=== PATIENT | male | born 1955 | race Caucasian/White ===

== ENCOUNTER → 2022-05-09 09:01 | Outpatient (BNVA) | payer SELFPAY | PROVIDERS: Visit Provider Physician Assistant | DX: Z02.79 Encounter for issue of other medical certificate (principal) ==

== ENCOUNTER 2023-11-30 13:26 | Emergency (ER) | payer MEDICARE, SELFPAY ==
--- NOTE | ~2023-11-30 | CT_ITS ---
EXAMINATION: CT HEAD WITHOUT CONTRAST CLINICAL INFORMATION: Injury, forehead laceration COMPARISON: None available. TECHNIQUE: Contiguous axial imaging was performed from the skull base to vertex without intravenous administration of contrast. This CT examination was performed using dose optimization techniques as appropriate, variously including the following: *Automated exposure control *Adjustment of mA and/or kV according to patient size (this includes techniques or standardized protocols for targeted exams where dose is matched to indication/reason for exam; i.e. extremities or head) *Use of iterative reconstruction technique DLP: 808 mGy-cm FINDINGS: There is no evidence of acute intracranial hemorrhage or edematous territorial infarction. No abnormal mass effect or midline shift is seen. Archuleta to white matter differentiation is well preserved. No abnormal extra-axial fluid collections are identified. The ventricles are normal in size. No abnormal attenuation in the brain parenchyma. No acute calvarial fracture.. Paranasal sinuses and mastoid air cells are well-aerated. CT/CT head/brain wo IV con IMPRESSION: No CT evidence of acute intracranial hemorrhage or edematous territorial infarction. Electronically signed by: Cristi Youssef MD 11/30/2023 03:30 PM EDT
[2023-11-30 14:31] VITALS: BP 127/71; PULSE 59; RESP 14; TEMP 36.6; O2SAT 98; BMI 28.7
--- OUTSIDE RECORDS SUMMARY | 2023-11-30 16:12 | XMS_ITS | Continuity of Care Document ---
Author Organization [facility] Address [address] [place] [address] [address], [address] [place] [address]- Care Team Providers Care Production Trainer Name Role Phone Camilo DAVID, Chuyita A Primary Care Physician Encounter [facility] Date(s): 12/10/21 - 01/09/[address], [address] [place] [address]- Allergies, Adverse Reactions, Alerts No Known Allergies Medications acetaminophen 325 mg oral tablet 650 mg, 2, tablet, By Mouth, Every 4 hours, Refills 0, Maintenance, 12/10/21 15:48:00 EDT, Partial fill upon patient request if the prescription is for a schedule II opioid drug. Start Date: 12/10/21 Status: Ordered lisinopril 5 mg oral tablet 5 mg, 1, tablet, By Mouth, Daily, Refills 0, Maintenance, 11/01/21 13:15:00 EDT, Partial fill upon patient request if the prescription is for a schedule II opioid drug. Start Date: 11/01/21 Status: Ordered oxyCODONE 5 mg oral tablet See Instructions, PRN, 1 tablet By Mouth Every 4-6 hours, # 42 tablet, Refills 0, Tot. Refills 0, Maintenance, as needed for pain, 12/12/21 18:46:00 EDT, Instructions Replace Required Details, Route to Pharmacy Electronically, [facility]... Start Date: 12/12/21 Status: Ordered tiZANidine 4 mg oral tablet 4 mg, 1, tablet, By Mouth, 3 times a day, # 90 tablet, Refills 0, Tot. Refills 0, Maintenance, 12/12/21 18:46:00 EDT, Route to Pharmacy Electronically, [facility], Partial fill upon patient request if the prescription is for a schedule I... Start Date: 12/12/21 Status: Ordered Patient Care team information Personnel Name: Chuyita Page MD Address: Address: [address] [place] [id number]
--- OUTSIDE RECORDS SUMMARY | 2023-11-30 16:12 | XMS_ITS | Continuity of Care Document ---
Author Organization [facility] Address [address] [place] [address], [address] [place] [address]- Care Team Providers Care Confidential Secretary Name Role Phone Chuyita Page MD A Primary Care Physician Encounter [facility] Date(s): 11/01/21 - 11/08/21 [facility] [address] [place] [address] Drive, [address] [place], [place] [address] Attending Physician: Jai Cabrera MD Referring Physician: Chuyita Page MD Allergies, Adverse Reactions, Alerts No Known Allergies Medications lisinopril 5 mg oral tablet 5 mg, 1, tablet, By Mouth, Daily, Refills 0, Maintenance, 11/01/21 13:15:00 EDT, Partial fill upon patient request if the prescription is for a schedule II opioid drug. Start Date: 11/01/21 Status: Ordered Vital Signs Most recent to oldest [Reference Range]: 1 Height 175.26 cm (11/01/21 1:11 PM) Weight 91.0 kg (11/01/21 1:11 PM) Body Mass Index [18.5-24.99] 29.63 *H* (11/01/21 1:11 PM)
--- OUTSIDE RECORDS SUMMARY | 2023-11-30 16:12 | XMS_ITS | Continuity of Care Document ---
Author Organization [facility] Address [address] [place] [address], [address] [place] [address]- Care Team Providers Care Track Grinder Name Role Phone Camilo DAVID, Chuyita A Primary Care Physician Encounter [facility] Date(s): 09/26/21 - 10/27/21 [facility] [address] [place] [address], [address] [place], [place] [address] Attending Physician: Jai Cabrera MD Referring Physician: Chuyita Page MD Allergies, Adverse Reactions, Alerts No Known Allergies
--- OUTSIDE RECORDS SUMMARY | 2023-11-30 16:12 | XMS_ITS | Continuity of Care Document ---
Author Organization [facility] Address [address] [place] [address] [address], [address] [place] [address]- Care Team Providers Care Ice Scraper Name Role Phone Chuyita Page MD A Primary Care Physician Encounter [facility] Date(s): 09/26/21 - 10/26/21 [facility] [address] [place] [address], [address] [place], [place] [address] Allergies, Adverse Reactions, Alerts No Known Allergies
--- OUTSIDE RECORDS SUMMARY | 2023-11-30 16:12 | XMS_ITS | Continuity of Care Document ---
Author Organization [facility] Address [address] [place] [address] [address], [address] [place] [address]- Care Team Providers Care Community Specialist Name Role Phone Chuyita Page MD A Primary Care Physician Encounter [facility] Date(s): 01/10/22 - 02/09/[address], [address] [place] [address]- Attending Physician: Susan Iraheta Admitting Physician: AdmtrSusan Referring Physician: Admtr ArBetzaida Allergies, Adverse Reactions, Alerts No Known Allergies [...] Replace Required Details, Route to Pharmacy Electronically, [facility]... Start Date: 12/12/21 Status: Ordered tiZANidine 4 mg oral tablet 4 mg, 1, tablet, By Mouth, 3 times a day, # 90 tablet, Refills 0, Tot. Refills 0, Maintenance, 12/12/21 18:46:00 EDT, Route to Pharmacy Electronically, [facility], Partial fill upon patient request if the prescription is for a schedule I... Start Date: 12/12/21 Status: Ordered Patient Care team information Care Team Personnel Name: Camilo DAVID , Chuyita Bermudez Position: Reference Physician Member Role: PCP Address: Address: [address] [place] [address]- Care Team Related Persons Name: DILIP MAHARAJ Address: [address] [place] [address]
--- OUTSIDE RECORDS SUMMARY | 2023-11-30 16:12 | XMS_ITS | Continuity of Care Document ---
Author Organization [facility] Address [address] [place] [address] [address], [address] [place] [address]- Care Team Providers Care Tipple Greaser Name Role Phone Camilo DAVID, Chuyita A Primary Care Physician En[place] [facility] Date(s): 12/04/21 - 01/03/[address], [address] [place] [address]- Allergies, Adverse Reactions, Alerts No Known Allergies [...] Replace Required Details, Route to Pharmacy Electronically, [facility]... Start Date: 12/12/21 Status: Ordered tiZANidine 4 mg oral tablet 4 mg, 1, tablet, By Mouth, 3 times a day, # 90 tablet, Refills 0, Tot. Refills 0, Maintenance, 12/12/21 18:46:00 EDT, Route to Pharmacy Electronically, [facility], Partial fill upon patient request if the prescription is for a schedule I... Start Date: 12/12/21 Status: Ordered Patient Care team information Personnel Name: Chuyita Page MD Address: Address: [address] [place] [address]
--- OUTSIDE RECORDS SUMMARY | 2023-11-30 16:12 | XMS_ITS | Continuity of Care Document ---
Author Organization [facility] ter Address [address] [place] [address]- Care Team Providers Care Physical Fitness Teacher Name Role Phone Chuyita Page MD A Primary Care Physician [place] [facility] Date(s): 12/12/21 - 12/12/[address] [address] Discharge Disposition: A-D/C Home Attending Physician: Jai Cabrera MD Admitting Physician: Jai Cabrera MD Referring Physician: Jai Cabrera MD Allergies, Adverse Reactions, Alerts No Known [...] Replace Required Details, Route to Pharmacy Electronically, [facility]... Start Date: 12/12/21 Status: Ordered OxyCODONE IR Tablet 5 mg, Tablet, By Mouth, Every 4 hours, in PACU ONLY, if patient can tolerate PO, PRN for Pain , Mild, Routine, 12/12/21 15:57:00 EDT Start Date: 12/12/21 Stop Date: 12/19/21 Status: Ordered tiZANidine 4 mg oral tablet 4 mg, 1, tablet, By Mouth, 3 times a day, # 90 tablet, Refills 0, Tot. Refills 0, Maintenance, 12/12/21 18:46:00 EDT, Route to Pharmacy Electronically, [facility], Partial fill upon patient request if the prescription is for a schedule I... Start Date: 12/12/21 Status: Ordered Results Radiology Reports * Exam Date Time Procedure Performing Provider Status 12/12/21 4:20 PM Spine Single View Faraz Downey; Auth ( Verified) Notes: (Spine Single View) Reason For Exam: acdf RESULT: Spine Single View Findings/ Impression: 5 intraoperative fluoroscopic spot images submitted during C3-C4 and C5-C6 fusion WSN: [id number] Ordering Physician: Jai Cabrera Dictated By: Jatin Mendez MD Dictated Date/Time: 12/12/21 4:53 pm Reviewed By: Jatin Mendez MD Signed By: Jatin Mendez MD Signed Date/Time: 12/12/21 4:53 pm Transcribed By: CSB Transcribed Date/Time: 12/12/21 4:52 pm * Exam Date Time Procedure Performing Provider Status 12/12/21 4:20 PM C-Arm > 1 Hour Faraz Downey; Auth (Jacques ified) Notes: (C-Arm > 1 Hour) Reason For Exam: acdf RESULT: C-Arm > 1 Hour C-Arm > 1 Hour INDICATION: Reason: acdf COMPARISONS: None TECHNIQUE: Fluoroscopy support was provided. There was no radiologist in attendance. FLUOROSCOPY TIME: 13.7 seconds TECHNOLOGIST TIME: 1 hour, 10 minutes FINDINGS: Fluoroscopy support was provided. There was no radiologist in attendance. IMPRESSION: See above. WSN: [id number] Ordering Physician: Jai Cabrera Dictated By: Lane Paez MD Dictated Date/Time: 12/12/21 4:41 pm Reviewed By: Lane Paez MD Signed By: Lane Paez MD Signed Date/Time: 12/12/21 4:41 pm Transcribed By: CSB Transcribed Date/Time: 12/12/21 4:40 pm Vital Signs Most recent to oldest [Reference Range]: 1 2 3 Height 175 cm (12/12/21 2:10 PM) 175 cm (12/10/21 3:53 PM) Weight 85.5 kg (12/12/21 2:10 PM) 91 kg (12/10/21 3:53 PM) Oxygen Saturation [94-100 %] 94 % (12/12/21 6:00 PM) 96 % (12/12/21 5:45 PM) 98 % (12/12/21 5:30 PM) Pulse Rate [55-90 bpm] 67 bpm (12/12/21 2:10 PM) Body Mass Index [18.5-24.99] 27.92 *H* (12/12/21 2:10 PM) 29.71 *H* (12/10/21 3:53 PM) Blood Pressure [90-138/55-84 mm Hg] 162/86mm Hg *H* (12/12/21 6:00 PM) 165/87mm Hg *H* (12/12/21 5:45 PM) 135/62mm Hg (12/12/21 5:30 PM) Respiratory Rate [16-30 br/min] 20 br/min (12/12/21 6:34 PM) 14 br/min *L* (12/12/21 6:00 PM) 22 br/min (12/12/21 5:45 PM) Temperature [96.8-100.4 DegF] 97.5 DegF (12/12/21 5:45 PM) 97.4 DegF (12/12/21 4:45 PM) 97.8 DegF (12/12/21 2:10 PM) Liters per Minute 2 L/min (12/12/21 5:30 PM) 2 L/min (12/12/21 5:15 PM) 6 L/min (12/12/21 4:45 PM) Mode of Delivery (Oxygen) Room air (12/12/21 6:00 PM) Room air (12/12/21 5:45 PM) Nasal cannula (12/12/21 5:30 PM) Blood pressure sites Arm, right (12/12/21 5:45 PM) Arm, right (12/12/21 4:45 PM) Arm, right (12/12/21 2:10 PM) Temperature Route Temporal (12/12/21 5:45 PM) Temporal (12/12/21 4:45 PM) Temporal (12/12/21 2:10 PM) Dry Weight 85.5 kg (12/12/21 2:10 PM) 91 kg (12/10/21 3:53 PM) Weight Obtained Via Standing scale (12/12/21 2:10 PM) Patient/family stated (12/10/21 3:53 PM) Dry Weight Obtained Via Standing scale (12/12/21 2:10 PM) Patient/family stated (12/10/21 3:53 PM) Note * ANGELO Franz S: TRANSCRILane Demarco MD: VERIFY Event Display: Result: Authored Date: [id number] C-Arm > 1 Hour INDICATION: Reason: acdf COMPARISONS: None TECHNIQUE: Fluoroscopy support was provided. There was no radiologist in attendance. FLUOROSCOPY TIME: 13.7 seconds TECHNOLOGIST TIME: 1 hour, 10 minutes FINDINGS: Fluoroscopy support was provided. There was no radiologist in attendance. IMPRESSION: See above. WSN: [id number] Ordering Physician: Jai Cabrera Dictated By: Lane Paez MD Dictated Date/Time: 12/12/21 4:41 pm Reviewed By: Lane Paez MD Signed By: Lane Paez MD Signed Date/Time: 12/12/21 4:41 pm Transcribed By: CYNDI Transcribed Date/Time: 12/12/21 4:40 pm * ANGELO Franz S: TRANSCRIJatin Alonzo MD: VERIFY Event Display: Result: Authored Date: [id number] Findings/ Impression: 5 intraoperative fluoroscopic spot images submitted during C3-C4 and C5-C6 fusion WSN: [id number] Ordering Physician: Jai Cabrera Dictated By: Jatin Mendez MD Dictated Date/Time: 12/12/21 4:53 pm Reviewed By: Jatin Mendez MD Signed By: Jatin Mendez MD Signed Date/Time: 12/12/21 4:53 pm Transcribed By: CYNDI Transcribed Date/Time: 12/12/21 4:52 pm Care Team Personnel Name: Chuyita Page MD Address: [address] [place] [address]
--- OUTSIDE RECORDS SUMMARY | 2023-11-30 16:12 | XMS_ITS | Continuity of Care Document ---
Author Organization [facility] Address [address] [place] [address] [address], [address] [place] [address]- Care Team Providers Care Shingle Sawyer Name Role Phone Chuyita Page MD A Primary Care Physician Encounter [facility] [place] Date(s): 01/10/22 - 01/17/[address], [address] [place] [address]- Attending Physician: Not on Staff, Attending MD Allergies, Adverse Reactions, Alerts No Known [...] Replace Required Details, Route to Pharmacy Electronically, [facility]... Start Date: 12/12/21 Status: Ordered tiZANidine 4 mg oral tablet 4 mg, 1, tablet, By Mouth, 3 times a day, # 90 tablet, Refills 0, Tot. Refills 0, Maintenance, 12/12/21 18:46:00 EDT, Route to Pharmacy Electronically, [facility], Partial fill upon patient request if the prescription is for a schedule I... Start Date: 12/12/21 Status: Ordered Vital Signs Most recent to oldest [Reference Range]: 1 Height 175 cm (01/10/22 2:57 PM) Weight 85 kg (01/10/22 2:57 PM) Body Mass Index [18.5-24.99 kg/m2] 27.76 kg/m2 *H* (01/10/22 2:57 PM) Patient Care team information Personnel Name: Chuyita Page MD Address: Address: [address] [place] [id number]
--- OUTSIDE RECORDS SUMMARY | 2023-11-30 16:12 | XMS_ITS | Continuity of Care Document ---
Author Organization [facility] Address [address] [place], [place] [address]otis [address], [address] [place] [address]- Care Team Providers Care Mild Disabilities Teacher Name Role Phone Chuyita Page MD A Primary Care Physician [id number] Date(s): 11/06/21 - 02/09/[address], [address] [place] [address]- Attending Physician: Jai Cabrera MD Referring Physician: [...] Replace Required Details, Route to Pharmacy Electronically, [facility] 3... Start Date: 12/12/21 Status: Ordered tiZANidine 4 mg oral tablet 4 mg, 1, tablet, By Mouth, 3 times a day, # 90 tablet, Refills 0, Tot. Refills 0, Maintenance, 12/12/21 18:46:00 EDT, Route to Pharmacy Electronically, [facility], Partial fill upon patient request if the prescription is for a schedule I... Start Date: 12/12/21 Status: Ordered Patient Care team information Care Team Personnel Name: Camilo DAVID , Chuyita A Position: Reference Physician Member Role: PCP Address: Address: [address] [place] [address]- Care Team Related Persons Name: DILIP MAHARAJ Address: [address] [place] [address]
--- NOTE | 2023-11-30 16:37 | ED_ITS ---
HPI - General Adult General Chief complaint: Wound/Laceration Stated complaint: forehead lac Time Seen by Provider: 11/30/23 16:36 Source: patient and other (patient's partner) Mode of arrival: ambulatory Limitations: no limitations History of Present Illness ED Provider: Felicity Joe PA-C HPI narrative: Patient is a 68 year old assigned male at with no reported medical history presenting to the emergency department today with a scalp laceration. Patient states that a 2x6 piece of wood caught the top of his head this morning in his garage. Patient states that he is up to date on his vaccinations - including tetanus and did not have any loss of consciousness. Patient denies any dizziness, lightheadedness, abdominal pain, nausea, vomiting, fever, chills, blurry vision, double vision, loss of vision, chest pain, difficulty breathing, shortness of breath, back pain, night sweats, pain with urination, increased urinary frequency, increased urinary urgency, blood in his urine or stool, syncope or a near syncopal episode, bowel incontinence, bladder incontinence, or any other complaints at this time. Location: head Relieving factors: none Exacerbating factors: none Associated symptoms: denies other symptoms Treatments prior to arrival: none Related Data Previous Rx's ?Medication ?Instructions ?Recorded cephalexin 500 mg capsule 500 mg PO Q6H 7 days #28 caps 11/30/23 Allergies Allergy/AdvReac Type Severity Reaction Status Date / Time No Known Allergies Allergy Verified 11/30/23 14:32 [No Known Allergies*] Review of Systems 2 Constitutional: Constitutional: Reports no additional constitutional complaints, Denies chills, Denies fever(s) and Denies night sweats Eyes: Eyes: Reports no additional eye complaints, Denies blurry vision, Denies change in vision, Denies diplopia, Denies eye discharge, Denies loss of vision and Denies eye pain ENT: Denies dizziness Comments: head laceration Cardiovascular: Cardiovascular: Reports no additional cardiovascular complaints, Denies chest pain, Denies lightheadedness, Denies Loss of Consciousness and Denies dyspnea Respiratory: Respiratory: Reports no additional respiratory complaints and Denies dyspnea Gastrointestinal: Gastrointestinal: Reports no additional gastrointestinal complaints, Denies abdominal pain, Denies melena, Denies hematochezia, Denies change in bowel habits and Denies change in stool character Genitourinary: Genitourinary: Reports no additional male genitourinary complaints, Denies hematuria, Denies oliguria, Denies difficulty urinating, Denies dysuria, Denies urinary frequency, Denies urinary hesitancy, Denies urinary incontinence and Denies urinary urgency Musculoskeletal: Musculoskeletal: Reports no additional musculoskeletal complaints, Denies numbness and Denies tingling Neurologic: Denies dizziness, Denies loss of vision, Denies numbness and Denies tingling Psychiatric: Psychiatric: Reports no additional psychiatric complaints Endocrine: Endocrine: Reports no additional endocrine complaints Hematologic/Lymphatic: Hematologic/Lymphatic: Reports no additional hematologic/lymphatic complaints Allergic/Immunologic: Allergic/Immunologic: Reports no additional allergic/immunologic complaints [facility] Past Medical History Attestation statement: The following information was validated with the patient. (all information validated with the patient's partner) Source: old records reviewed, obtained from family (patient's partner provided additional history and confirmed the history provided by the patient.) and nursing notes reviewed Social History Social History Advance Directives: No Advance Directives Information Provided: No Physical Exam ED Vital Signs: Vital Signs - 24 hr 11/30/23 14:31 11/30/23 16:57 Temperature 97.9 F 97.9 F Pulse Rate 59 59 Respiratory Rate 14 14 Blood Pressure 127/71 127/71 Pulse Oximetry 98 98 Oxygen Delivery Method Room Air Room Air BMI result Body Mass Index 28.7 Const General: cooperative, no acute distress, alert and awake Nutritional Appearance: well nourished Orientation/consciousness: patient oriented x3 Limitations: no limitations [facility] Head images: 2 1. superficial laceration Ears: hearing grossly normal bilaterally and external ears normal General nose exam: Normal external nose present, no nasal discharge noted and no epistaxis Face and sinus: Yes normal facial exam, No abrasion and No laceration Mouth: Normal oral and palatal mucosa present, no drooling and no muffled voice Eyes General: appearance normal, both eyes and all related structures Periorbital: periorbital findings normal Eyelids: Yes eyelids normal Conjunctivae: conjunctivae normal Pupils: Equal, round and reactive pupils present EOM: EOMs intact bilaterally Neck Neck: Yes normal visual inspection, Yes full ROM and Yes no lymphadenopathy Chest Chest palpation & inspection: normal inspection of the chest Resp Effort & Inspection: normal respiratory effort and able to speak in complete sentences GI Inspection: Yes normal to inspection Neuro General: patient oriented x3 and moves all extremities Cranial nerves: Yes Equal, round and reactive pupils present Cognition (Neuro): normal cognition Extrem General: Yes normal to inspection, Yes full ROM and Yes capillary refill normal Psych Appearance: grossly normal Mental Status: mental status grossly normal Affect: normal affect Attitude: cooperative Thought process: Normal thought process present Thought content: Normal thought content present Insight: Good insight present (Psych) Procedures Laceration Laceration 1: Site: scalp Side (If applicable): left Size (cm): 1 Description: linear Depth: simple, single layer Pre-repair: wound explored, irrigated extensively and deep structures intact Skin layer closed with: other (dermabond) Size (cm): other (dermabond) Technique: other (dermabond) Medical Decision Making Medical Decision Making MDM Narrative: Patient is a 68 year old assigned male at with no reported medical history presenting to the emergency department today with a head laceration. Patient's physical exam was as noted in the physical exam portion of this note. Patient's CT head showed no acute process. I explained my physical exam findings as well as all test results to the patient and the patient's partner. I answered all questions asked by the patient and the patient's partner. Patient's laceration was repaired with dermabond, without incident. I stressed the importance of the patient taking his medication as directed (either prescribed or as the over the counter packaging recommends). I stressed the importance of the patient following up with his primary care provider. I stressed the importance of the patient returning to the emergency department immediately if his symptoms were to worsen or if he were to develop any dizziness, shortness of breath, difficulty breathing, chest pain, blurry vision, loss of vision, nausea, vomiting, abdominal pain, fever, chills, back pain, or any other complaints. Patient and the patient's partner verbalized agreement and understanding with this treatment plan and discharge. Differential Diagnosis Differential Diagnoses: The differential diagnosis associated with the presentation includes Head laceration Admission/Observation Consideration of admission/observation: Escalation of care including admission/observation considered Patient would have been admitted to the hospital had his work up had any findings where hospital admission was appropriate and his clinical presentation warranted hospital admission. Independent Interpretation I performed an independent interpretation of an: CT Scan Interpretation: My interpretation is in agreement with the radiologist's impression of this imaging study. - EXAMINATION: CT HEAD WITHOUT CONTRAST CLINICAL INFORMATION: Injury, forehead laceration COMPARISON: None available. TECHNIQUE: Contiguous axial imaging was performed from the skull base to vertex without intravenous administration of contrast. This CT examination was performed using dose optimization techniques as appropriate, variously including the following: *Automated exposure control *Adjustment of mA and/or kV according to patient size (this includes techniques or standardized protocols for targeted exams where dose is matched to indication/reason for exam; i.e. extremities or head) *Use of iterative reconstruction technique DLP: 808 mGy-cm FINDINGS: There is no evidence of acute intracranial hemorrhage or edematous territorial infarction. No abnormal mass effect or midline shift is seen. Archuleta to white matter differentiation is well preserved. No abnormal extra-axial fluid collections are identified. The ventricles are normal in size. No abnormal attenuation in the brain parenchyma. No acute calvarial fracture.. Paranasal sinuses and mastoid air cells are well-aerated. CT/CT head/brain wo IV con IMPRESSION: No CT evidence of acute intracranial hemorrhage or edematous territorial infarction. Electronically signed by: Cristi Youssef MD 11/30/2023 03:30 PM EDT Dictated By: Cristi Youssef MD Signed By: Electronically signed by Cristi Youssef MD 11/30/23 1530 Radiology Impression Discussion of test interpretation with radiology: I have reviewed the radiologist's reading. Independent Historian Clinical information obtained from an independent historian. History obtained from or confirmed by: Other (patient's partner provided additional history and confirmed the history provided by the patient.) Prescription Management I considered prescription management with: Antibiotic (patient prescribed a prophylactic antibiotic.) Discharge Plan Discharge Clinical Impression: Laceration Patient Disposition: Home, Self-Care Instructions: Skin Adhesive Care (ED), Head Laceration (ED) Additional Instructions: Follow up with your primary care provider. Return to the emergency department immediately if your symptoms worsen or if you develop any dizziness, shortness of breath, difficulty breathing, chest pain, blurry vision, loss of vision, nausea, vomiting, abdominal pain, fever, chills, back pain, or any other complaints. Prescriptions: New cephalexin 500 mg capsule 500 mg PO Q6H 7 Days Qty: 28 0RF Referrals: [facility] Family [facility] [Provider Group] (Call to establish and follow up with a primary care provider. If you already have a primary care provider, please follow up with them.) [facility] [Provider Group] (Call to establish and follow up with a primary care provider. If you already have a primary care provider, please follow up with them.) [facility] Primary Care,Josue [Provider Group] (Call to establish and follow up with a primary care provider. If you already have a primary care provider, please follow up with them.) Interventions: ED Discharge Assessment Last Done: 11/30/23 16:57 Discharge Date/Time: 11/30/23 17:08 Print Language: Bengali
[2023-11-30 16:57] VITALS: BP 127/71; PULSE 59; RESP 14; TEMP 36.6; O2SAT 98
== END 2023-11-30 17:08 | disposition home or self-care (01) ==
PROVIDERS: Emergency Provider Emergency Medicine Emergency Medical Services
DX: S01.81XA Laceration without foreign body of other part of head, initial encounter (principal); S01.01XA Laceration without foreign body of scalp, initial encounter; R51.9 Headache, unspecified; Y29.XXXA Contact with blunt object, undetermined intent, initial encounter; Y93.89 Activity, other specified; Y92.098 Other place in other non-institutional residence as the place of occurrence of the external cause; Y99.8 Other external cause status
CPT/HCPCS: 12031; 70450; 99282; 99284